=== PATIENT | male | born 1960 | race Caucasian/White ===

== ENCOUNTER → 2020-01-29 | Emergency (ER) | payer OTHER ==
[~2020-01-29] VITALS: Ht 175.3 cm; Wt 120.7 kg
[~2020-01-29] MED LIST: HYDROcodone-ACET 10/325MG TAB PO ONE; KETOROLAC TROMETH 30 MG/ML 1ML VIAL ONE; ONDANSETRON HCL 4 MG/2 ML VIAL ONE
[2020-01-30 01:47] VITALS: BP 137/76
== END | disposition home or self-care (01) ==
LOC: ER 22:46
DX: S49.091A Other physeal fracture of upper end of humerus, right arm, initial encounter for closed fracture (principal); I10 Essential (primary) hypertension; E11.9 Type 2 diabetes mellitus without complications; X58.XXXA Exposure to other specified factors, initial encounter; Y93.89 Activity, other specified; Y92.89 Other specified places as the place of occurrence of the external cause; Y99.8 Other external cause status
CPT/HCPCS: 73030

== ENCOUNTER 2025-03-02 06:54 | Day surgery (SDC) | payer MEDICAID ==
[~2025-03-02] VITALS: Ht 175.3 cm; Wt 101.2 kg
[2025-03-02] VITALS (7 sets, daily range): BP systolic 107–132; BP diastolic 62–72; PULSE 51–53; RESP 12–17; TEMP 98–98.7; O2SAT 92–95
[~2025-03-02 06:54] MED LIST changes: +ALPR0.5T PO; +ASPI-543 PO; +BACL10TA PO; +BUPR150T8 PO; +BUSP30TA PO; +DAPA1TAB4 PO; +ESCI20TA PO; +EVOL140I SC; +EZET10TA22 PO; +FENO145T27 OR; +HYDR-4902 PO; -HYDROcodone-ACET 10/325MG TAB PO ONE; -KETOROLAC TROMETH 30 MG/ML 1ML VIAL ONE; +METF-370 PO; +METO-289 PO; +MULT-1018 PO; -ONDANSETRON HCL 4 MG/2 ML VIAL ONE
[2025-03-02] MEDS: IODIXANOL 320MG/ML 100ML BTL IV ONE ×2 (07:31→09:04)
[2025-03-02] MEDS: LIDOCAINE 2%HCL (LOCAL ANESTH.) INJ 20ML MDV ONE (07:59)
[2025-03-02] MEDS: ANGIOMAX 250 MG VIAL IV ONE (08:03)
[2025-03-02] MEDS: VERAPAMIL 2.5MG/ML INJ 2ML VIAL IV ONE (08:03)
[2025-03-02] MEDS: fentaNYL CITRATE 100 MCG/2 ML VL ONE (08:03)
[2025-03-02] MEDS: MIDAZOLAM HCL 2MG/2ML 2ml VIAL (1mg/ml) ONE (08:04)
[2025-03-02] MEDS: SODIUM CHL 0.9% 0 ML ONE (08:04)
[2025-03-02] MEDS: NITROGLYCERIN 50MG/250ML 250 ML IV ONE (08:07)
[2025-03-02] MEDS: HEPARIN SODIUM (PORCINE) 5000 UNITS/ML 1ML VIAL ONE (09:04)
--- NOTE | 2025-03-02 09:08 | DVHOP2 ---
Operative Report Procedures performed: Left heart catheterization and bilateral coronary angiogram Moderate sedation Diagnosis: Multivessel coronary artery disease LAD was APPEALS MANAGER at its ostium Left dominant system. Distal PDA (LPDA) with 95% lesion RCA (nondominant) APPEALS MANAGER at its proximal section Cardiac suggestion for management: Outpatient referral for bypass surgery Lifestyle and risk factor modifications Findings: LVEF: 55% There was apical hypokinesia LVEDP was 12 mmHg. There was no transaortic valve pressure gradient Left main: Left main was coming off the left sinus of Valsalva. There was no angiographic evidence of disease in left main. LAD: LAD was coming off the left main. It was APPEALS MANAGER at its ostium. There was some [id number] collaterals filling the LAD. Ramus intermedius: Ramus intermedius was a medium-sized vessel with mild dis ease. LCX: LCX was coming off the left main. It was the dominant vessel and provided LPDA. LCX itself was free of disease. OM1 was a large-sized vessel with moderate proximal disease. OM2 was a medium-sized vessel with moderate proximal disease. OM3 was a small-sized vessel. First and 2nd left posterolateral branches were small-sized vessels with no disease. Left PDA was a large-sized vessel with distal 90% lesion. RCA: RCA was coming off the anterior portion of aorta. It was APPEALS MANAGER at its proximal section. Presentation: Patient is a 64-year-old gentleman who presented to the office with dyspnea on exertion and chest pain. Past medical history includes hypertension, hypothyroidism, CKD, diabetes mellitus, anxiety/depression, morbid obesity, active cigarette/cigar smoking, chronic pain syndrome, BPH and right shoulder injury. He can not tolerate statins (gets memory loss). Nuclear stress test of August 2024 was abnormal. Echocardiogram of October 10, 2024 revealed preserved left ventricular systolic function, mild concentric left ventricular hypertrophy, trace MR/TR/PI and right ventricular systolic pressure of less than 35 mm Hg. He does have CKD and filter operator cleared the patient for angiogram. Patient was sent for cardiac catheterization. Procedure: After obtaining informed consent, the patient was brought to slab tripper. He was prepped and draped in sterile fashion. 1 mg of Versed and 50 mcg of fentanyl were used for moderate sedation. Using modified Seldinger technique, the right radial artery was accessed and a 6 Sudanese slender sheath was inserted into it. 2.5 mg of verapamil and 100 mcg of nitroglycerin were gi tim as a cocktail into right radial sheath. A 5 Sudanese tiger catheter was used to perform left coronary angiography. A 6 Sudanese JR4 diagnostic catheter was used to perform right coronary angiography. A 5 Sudanese pigtail catheter was used to perform left heart catheterization (obtaining pressures and performing left ventriculography). We did recognize multivessel coronary artery disease. Decision was made to send the patient as outpatient for bypass surgery by Cardiothoracic surgery. There was no complication. There was no dissection/hematoma/perforation. Patient tolerated the procedure with no complication. Right radial artery access site was managed by TR band. Fluoroscopy time: 6.1 minutes contrast: 75 mL of Visipaque for LARRY MARTINEZ MD Mar 02, 2025 09:08
== END 2025-03-02 11:28 | disposition home or self-care (01) ==
LOC: CATH 06:54
PROVIDERS: ATTEND Internal Medicine Cardiovascular Disease
DX: I25.82 Chronic total occlusion of coronary artery (principal); R94.39 Abnormal result of other cardiovascular function study; I13.10 Hypertensive heart and chronic kidney disease without heart failure, with stage 1 through stage 4 chronic kidney disease, or unspecified chronic kidney disease; N18.9 Chronic kidney disease, unspecified; E11.22 Type 2 diabetes mellitus with diabetic chronic kidney disease; E03.9 Hypothyroidism, unspecified; G89.4 Chronic pain syndrome; N40.0 Benign prostatic hyperplasia without lower urinary tract symptoms; F17.210 Nicotine dependence, cigarettes, uncomplicated; F41.8 Other specified anxiety disorders; E66.01 Morbid (severe) obesity due to excess calories; Z68.32 Body mass index [BMI] 32.0-32.9, adult
CPT/HCPCS: 93458; C1769; C1894; J1644; J2250; J3010; J7030; Q9967; 99152; 99153